=== PATIENT | female | born 1990 | race Caucasian/White ===

== ENCOUNTER 2017-02-28 09:46 | Emergency (ER) | payer MEDICAID ==
[2017-02-28 09:58] VITALS: O2SAT 98; BMI 27.3
--- NOTE | 2017-02-28 10:37 | ED PDOC ---
HPI: Abdomen Time Seen by Provider: 02/28/17 09:47 Chief Complaint (Nursing): Abdominal Pain Chief Complaint (Provider): Abdominal pain in History Per: Patient Additional Complaint(s): 26 yo female, no PMH, presents to ED c/o pelvic pain x5-6 days. Denies discharge or bleeding. LMP: . Pt reports she did not take a test at home but believes she might be preg. Preg test done at bedside (+) No vaginal bleeding. Pt is known RH (-) Past Medical History Reviewed: Nursing Documentation, Vital Signs Vital Signs: Last Vital Signs Temp 99 F 02/28/17 12:43 Pulse 78 02/28/17 12:43 Resp 18 02/28/17 12:43 BP 135/70 02/28/17 12:43 Pulse Ox 98 02/28/17 12:43 - Medical History PMH: Asthma - Surgical History Surgical History: No Surg Hx - Family History Family History: States: Unknown Family Hx - Living Arrangements Living Arrangements: With Family - Social History Current smoker - smoking cessation education provided: No Alcohol: None Drugs: Denies - Home Medications Home Medications: Ambulatory Orders Medication Instructions Recorded No Known Home Med 02/28/17 - Allergies Allergies/Adverse Reactions: Allergies Allergy/AdvReac Type Severity Reaction Status Date / Time No Known Allergies Allergy Verified 02/28/17 10:08 Review of Systems ROS Statement: Except As Marked, All Systems Reviewed And Found Negative Physical Exam - Reviewed Nursing Documentation Reviewed: Yes Vital Signs Reviewed: Yes - Physical Exam Appears: Positive for: Well, Non-toxic, No Acute Distress Head Exam: Positive for: ATRAUMATIC, NORMAL INSPECTION, NORMOCEPHALIC Skin: Positive for: Normal Color, Warm, DRY Eye Exam: Positive for: EOMI, Normal appearance, PERRL ENT: Positive for: Normal ENT Inspection Neck: Positive for: Normal, Painless ROM Cardiovascular/Chest: Positive for: Regular Rate, Rhythm Respiratory: Positive for: CNT, Normal Breath Sounds Gastrointestinal/Abdominal: Positive for: Normal Exam, Bowel Sounds, Soft Back: Positive for: Normal Inspection Extremity: Positive for: Normal ROM Neurologic/Psych: Positive for: Alert, Oriented - Laboratory Results Result Diagrams: 02/28/17 10:45 - ECG O2 Sat by Pulse Oximetry: 98 Medical Decision Making Medical Decision Making: Pt medicated with Acetaminophen PO CBC WNL Beta: > [id number] IMPRESSION: Single live intrauterine gestation of approximately 5 weeks 6 days gestational age. heart rate 135 beats per minute. No perigestational hemorrhage. Normal yolk sac. Disposition - Clinical Impression Clinical Impression: Abdominal pain during - Patient ED Disposition Is Patient to be Admitted: No - Disposition Disposition: Routine/Home Disposition Time: 13:07 Condition: STABLE Additional Instructions: Continue with Tylenol as needed for pain Instructions: Abdominal Pain in (ED) - POA Present On Arrival: None
[2017-02-28 10:53] LABS: BASO % 0.4 % (0.0-2.0); EOS # 0.3 K/uL (0.0-0.7); EOS % 2.8 % (0.0-4.0); HEMOGLOBIN 15.6 g/dL (12.0-16.0); LYMPH # 2.5 K/uL (1.0-4.3); LYMPH % 21.4 % (20.0-40.0); MEAN CELL VOLUME 83.7 fl (81.0-99.0); MEAN CORPUSCULAR HGB CONC 34.6 g/dL (33.0-37.0); MEAN PLATELET VOLUME 7.2 fl (7.2-11.7); MONO # 0.9 K/uL (0.0-0.8); MONO % 7.6 % (0.0-10.0); NEUT # 7.9 K/uL (1.8-7.0); NEUT % 67.8 % (50.0-75.0); NRBC % 0.1 % (0.0-0.0); RBC 5.37 Mil/uL (3.80-5.20); RED CELL DISTRIBUTION WIDTH 14.1 % (11.5-14.5); WHITE BLOOD COUNT 11.6 K/uL (4.8-10.8)
--- NOTE | 2017-02-28 11:51 | US ---
PROCEDURE: OB Pelvic Ultrasound HISTORY: pelvic pain in preg, unknown LMP COMPARISON: None available. FINDINGS: UTERUS: Single Live intrauterine gestation. CRL equivalent to 6 weeks 1 day gestatioin Gestational sac diameter equivalent to 5 weeks 4 days gestation age (Ultrasound estimated): 5 weeks 6 days Date of delivery (Ultrasound estimated) : 10/25/2017 Heart rate: 135 bpm. [place]-gestational hemorrhage: None. 3 mm yolk sac visualized. Uterus measures 11.0 x 4.7 x 7.6 cm. Right anterior fibroid identified measuring 1.1 x 1.3 x 1.5 cm. CERVIX: Trace endocervical fluid. Cervix is closed. Cervix measures 4.3 cm in length. RIGHT OVARY: Not visualize LEFT OVARY: Not visualize FREE FLUID: None. OTHER FINDINGS: None. IMPRESSION: Single live intrauterine gestation of approximately 5 weeks 6 days gestational age. heart rate 135 beats per minute. No perigestational hemorrhage. Normal yolk sac.
[2017-02-28 12:46] VITALS: BP 135/70; PULSE 78; RESP 18; TEMP 99
== END 2017-02-28 12:46 | disposition home or self-care (01) ==
LOC: H.ER 09:46
DX: O26.891 Other specified pregnancy related conditions, first trimester (principal); Z3A.01 Less than 8 weeks gestation of pregnancy; J45.909 Unspecified asthma, uncomplicated

== ENCOUNTER 2017-05-02 17:55 | Observation (INO) | payer MEDICAID ==
[2017-05-02 17:55] VITALS: BMI 27.3
[2017-05-02] MEDS ORDERED: Sodium Chloride 0.9% 1,000 ML IV STA (18:23)
[2017-05-02] MEDS ORDERED: DiphenhydrAMINE 50 mg/ml Inj IVP STA (18:30)
[2017-05-02] MEDS ORDERED: DiphenhydrAMINE 50 mg/ml Inj ONE (18:39)
[2017-05-02 18:43] LABS: BASO # 0.1 K/uL (0.0-0.2); BASO % 0.4 % (0.0-2.0); EOS # 0.2 K/uL (0.0-0.7); EOS % 1.5 % (0.0-4.0); HEMATOCRIT 38.5 % (34.0-47.0); LYMPH # 2.6 K/uL (1.0-4.3); LYMPH % 20.6 % (20.0-40.0); MEAN CELL VOLUME 84.3 fl (81.0-99.0); MEAN CORPUSCULAR HEMOGLOBIN 29.1 pg (27.0-31.0); MEAN CORPUSCULAR HGB CONC 34.5 g/dL (33.0-37.0); MEAN PLATELET VOLUME 7.3 fl (7.2-11.7); MONO # 0.6 K/uL (0.0-0.8); NEUT % 72.5 % (50.0-75.0); NRBC % 0.1 % (0.0-0.0); RED CELL DISTRIBUTION WIDTH 14.3 % (11.5-14.5); WHITE BLOOD COUNT 12.4 K/uL (4.8-10.8)
--- NOTE | 2017-05-02 18:51 | ED PDOC ---
HPI: Headache Time Seen by Provider: 05/02/17 18:01 Chief Complaint (Nursing): Headache Chief Complaint (Provider): Headache History Per: Patient History/Exam Limitations: no limitations Onset/Duration Of Symptoms: Days (x2 weeks), Worse Since (last few days) Current Symptoms Are (Timing): Still Present Associated Symptoms: Blurred Vision Additional Complaint(s): Roxanne Rojas is a 26 year old female, with a past medical history of asthma, who presents to the emergency department complaining of generalized headache onset for 2 weeks. Patient is 15 weeks and states symptoms have worsen in the past few days. She saw her OBGYN for evaluation of headache. She reports taking Tylenol and blurry vision. Patient denies any fever, chills, nausea, or vomit. No further medical complaints. OBGYN Tashi Phillips Past Medical History Reviewed: Historical Data, Nursing Documentation, Vital Signs Vital Signs: Last Vital Signs Temp 98.5 F 05/02/17 17:58 Pulse 87 05/02/17 17:58 Resp 16 05/02/17 17:58 BP 105/60 05/02/17 17:58 Pulse Ox 100 05/02/17 17:58 - Medical History PMH: Asthma - Family History Family History: States: Unknown Family Hx - Social History Current smoker - smoking cessation education provided: No Alcohol: None Drugs: Denies - Home Medications Home Medications: Ambulatory Orders Medication Instructions Recorded Multivit/Folic Acid/I 1 tab PO DAILY 05/02/17 [] - Allergies Allergies/Adverse Reactions: Allergies Allergy/AdvReac Type Severity Reaction Status Date / Time No Known Allergies Allergy Verified 05/02/17 17:58 Review of Systems ROS Statement: Except As Marked, All Systems Reviewed And Found Negative Constitutional: Negative for: Fever, Chills Eyes: Positive for: Vision Change (blurred vision) Gastrointestinal: Negative for: Nausea, Vomiting Neurological: Positive for: Headache (generalized headache) Physical Exam - Reviewed Nursing Documentation Reviewed: Yes Vital Signs Reviewed: Yes - Physical Exam Appears: Positive for: Well, Non-toxic, No Acute Distress Head Exam: Positive for: ATRAUMATIC, NORMAL INSPECTION, NORMOCEPHALIC Skin: Positive for: Normal Color, Warm, Dry Eye Exam: Positive for: Normal appearance ENT: Positive for: Normal ENT Inspection Neck: Positive for: Normal, Painless ROM Cardiovascular/Chest: Positive for: Regular Rate, Rhythm Respiratory: Positive for: Normal Breath Sounds. Negative for: Respiratory Distress Gastrointestinal/Abdominal: Positive for: Normal Exam, Bowel Sounds, Tenderness Back: Positive for: Normal Inspection Extremity: Positive for: Normal ROM Neurologic/Psych: Positive for: Alert, dog show judge II-XII, Oriented, Motor/Sensory Deficits, Mood/Affect, Cerebellar Tests, Gait. Negative for: Aphasia, Facial Droop - Laboratory Results Result Diagrams: 05/02/17 18:38 05/02/17 18:38 - ECG O2 Sat by Pulse Oximetry: 100 (RA) Pulse Ox Interpretation: Normal Medical Decision Making Medical Decision Making: Initial Impression: Generalized headache Initial Plan: --CMP --Urine dipstick --CBC w/ differential --Benadryl 25 mg IVP --Reglan 10 mg IV --NS IV 1,000ml at 1,000 mls/hr --reevaluation -Discussed with Dr. Mckeon and Dr. Salas for admission. MRI in the AM. Scribe Attestation: Documented by Floyd Braun, acting as a scribe for Jennifer ROSALES. Provider Scribe Attestation: All medical record entries made by the Scribe were at my direction and personally dictated by me. I have reviewed the chart and agree that the record accurately reflects my personal performance of the history, physical exam, medical decision making, and the department course for this patient. I have also personally directed, reviewed, and agree with the discharge instructions and disposition. Disposition - Clinical Impression Clinical Impression: Intractable headache - Patient ED Disposition Is Patient to be Admitted: Yes Counseled Patient/Family Regarding: Diagnosis, Need For Followup - Disposition Disposition Time: 21:44 Condition: GOOD Forms: [employer] (Faroese) - Pt Status Changed To: Hospital Disposition Of: Observation - Admit Certification Admit to Inpatient:: M/S - POA Present On Arrival: None
[2017-05-02 18:56] LABS: ALB/GLOB RATIO 1.4 (1.0-2.1); ALKALINE PHOSPHATASE 58 U/L (38-126); ALT/SGPT 30 U/L (9-52); AST/SGOT 27 U/L (14-36); BILIRUBIN,TOTAL 0.5 mg/dl (0.2-1.3); BLOOD UREA NITROGEN 5 mg/dl (7-17); CALCIUM 9.3 mg/dL (8.4-10.2); CARBON DIOXIDE 23 mmol/L (22-30); CHLORIDE 103 mmol/L (98-107); GFR AFRICAN-AMERICAN > 60; GLUCOSE,RANDOM 92 mg/dL (65-105); POTASSIUM 3.7 MMOL/L (3.6-5.0); SODIUM 137 mmol/l (132-148)
--- NOTE | 2017-05-03 08:18 | CP.PCM.CON ---
<Tiffanie Tatum - Last Filed: 05/03/17 12:59> History of Present Illness - History of Present Illness History of Present Illness: 26 yo F IUP 15 weeks seen and examined today at bedside, no acute overnight events, c/o headache since 2weeks ago worse since yesterday in the morning, frontal up to midhead, 10/10, gradually, constant, no radiated, associated nausea, blurred vision and pain R eye, photophobia, mild phonophobia. She took tylenol at home w/o relief. Denies fever, vomiting, recent injury or trauma, no cp,sob, abdominal or pelvic pain. Denies ctx, lof, vb. No previous h/o headache or family history of migraine. PMH: Asthma PSH: 2016 FMH: none Meds: PNV Allergies: NKDA SH: denies tobacco, etoh, drugs. Review of Systems - Review of Systems Review of Systems: As per HPI Past Patient History - Infectious Disease Hx of Infectious Diseases: None - Past Medical History & Family History Past Medical History?: No - Past Social History Smoking Status: Never Smoked Alcohol: None Drugs: Denies - PULMONARY Hx Asthma: Yes - SURGICAL HISTORY Hx Surgeries: Yes Hx Section: Yes (x1) - ANESTHESIA Hx Anesthesia: Yes Hx Anesthesia Reactions: No Hx Malignant Hyperthermia: No Meds Allergies/Adverse Reactions: Allergies Allergy/AdvReac Type Severity Reaction Status Date / Time No Known Allergies Allergy Verified 05/02/17 17:58 - Medications Medications: Current Medications Acetaminophen (Tylenol 325mg Tab) 650 mg PO Q6 PRN PRN Reason: Headache Multivit/Folic Acid/Iron () 1 tab PO DAILY ED Physical Exam - Constitutional Appears: No Acute Distress Additional comments: Uncomfortable due to pain - Head Exam Head Exam: ATRAUMATIC, NORMOCEPHALIC - Eye Exam Eye Exam: EOMI, Normal appearance, PERRL - Neck Exam Neck exam: Positive for: Full Rom - Respiratory Exam Respiratory Exam: Clear to Auscultation Bilateral - Cardiovascular Exam Cardiovascular Exam: REGULAR RHYTHM, +S1, +S2 - GI/Abdominal Exam Additional comments: gravid - Neurological Exam Neurological exam: Alert, CN II-XII Intact, Oriented x3, Reflexes Normal - Psychiatric Exam Psychiatric exam: Normal Mood Results - Vital Signs Recent Vital Signs: Last Vital Signs Temp 98.8 F 05/03/17 07:35 Pulse 85 05/03/17 07:35 Resp 18 05/03/17 07:35 BP 106/69 05/03/17 07:35 Pulse Ox 98 05/03/17 07:35 - Labs Result Diagrams: 05/02/17 18:38 05/02/17 18:38 Assessment & Plan - Assessment and Plan (Free Text) Assessment: Intractable Headache -tylenol 325mg q6 prn -reglan 10 mg po if nausea -pending MRI DVT prophylaxis -[facility] [place] Tiffanie Tatum PGY 1 <Linda Tatum - Last Filed: 05/03/17 13:21> Meds - Medications Medications: Current Medications Acetaminophen (Tylenol 325mg Tab) 650 mg PO Q6 PRN PRN Reason: Headache Last Admin: 05/03/17 09:31 Dose: 650 mg Magnesium Sulfate (Magnesium Sulfate 2 Gm/50 Ml Water) 2 gm in 50 mls @ 50 mls/ hr IVPB ONCE ONE PRN Reason: 2 GM/HR Stop: 05/03/17 13:43 Multivit/Folic Acid/Iron () 1 tab PO DAILY ED Last Admin: 05/03/17 09:31 Dose: 1 tab Results - Vital Signs Recent Vital Signs: Last Vital Signs Temp 98.8 F 05/03/17 07:35 Pulse 85 05/03/17 07:35 Resp 18 05/03/17 07:35 BP 106/69 05/03/17 07:35 Pulse Ox 98 05/03/17 07:35 - Labs Result Diagrams: 05/02/17 18:38 05/02/17 18:38 Labs: Laboratory Results - last 24 hr 05/03/17 10:13 TSH 3rd Generation 1.03 Assessment & Plan - Assessment and Plan (Free Text) Plan: The patient was counseled regarding the causes of headache. Patient reports excruciating headache N located in the frontal area. The patient was counseled regarding the need for MRI. We discussed the risks associated with . We discussed the risks benefits and alternatives to both imaging and doing nothing. After thorough discussion the patient opted for MRI of the head. The patient was given the opportunity ask questions all questions answered and she agreed to plan of care
[2017-05-03] MEDS ORDERED: Prenatal Multivit/Folic Acid/Iron Tab PO SCH (09:00)
--- NOTE | 2017-05-03 12:19 | HP ---
CHIEF COMPLAINT: Headache. HISTORY OF PRESENT ILLNESS: This is a 26-year-old female, 15-weeks , without any significant past medical history who was having significant headache for which the patient went to her director of social work who evaluated the patient and since the patient was not improving with conventional management, the patient was sent to emergency room for admission and further management and workup. REVIEW OF SYSTEMS: Positive for headache and being for 15-weeks. Review of systems is otherwise negative for chest pain, shortness of breath, nausea, vomiting, diarrhea, constipation, any new joint or extremity pain. Review of systems of all other organ system is unremarkable. PAST MEDICAL HISTORY: Significant for asthma for which the patient really is not using medication. PAST SURGICAL HISTORY: Unremarkable. PERSONAL HISTORY: The patient is currently nonsmoker and nondrinker. No substance abuse. MEDICATIONS: The patient is on vitamin prescribed by Dr. Tashi Ibrahim, her shoulder joiner. ALLERGIES: THE PATIENT IS NOT ALLERGIC TO ANY MEDICATIONS. FAMILY HISTORY: Noncontributory. PHYSICAL EXAMINATION: GENERAL: A well-built and well-nourished, athletic 26-year-old female in no acute distress. VITAL SIGNS: Temperature 98.6, pulse 85, respirations 18,blood pressure 106/69 and saturation 98%. HEENT: Pupils are reacting to light. Normocephalic and atraumatic scalp. NECK: No JVD. No thyromegaly. No lymphadenopathy. No nystagmus. HEART: S1 and S2 normal and regular. No significant murmur, gallop, or rub is heard. LUNGS: Shows good bilateral air exchange. No rales or rhonchi. ABDOMEN: Soft and nontender. No organomegaly. No fluids. Bowel sounds are plus.. The patient is 15-weeks . EXTREMITIES: No edema. No calf swelling. No tenderness. No acute ischemia. CENTRAL NERVOUS SYSTEM: The patient is alert, awake, and oriented x3. There is no sign of any acute gross focal motor or sensory neurological deficit. DIAGNOSTIC DATA: Available diagnostic data reviewed. WBC 12.4, hemoglobin 13.3, hematocrit 38.5, and platelets are 254. Sodium 137, potassium 3.7, chloride 102, bicarbonate 23, BUN 5 and creatinine 0.6. SMA-12 is unremarkable. ADMITTING IMPRESSION: Headache, 15-weeks . PLAN: As ordered. Case and plan discussed with the patient. Nicola Salas MD [facility] # [id number]
[2017-05-03 12:25] LABS: THYROID STIMULATING HORMONE 1.03 mIU/ML (0.46-4.68)
[2017-05-03] MEDS ORDERED: Magnesium Sulfate 2 gm/50 ml 2 GM/50 ML BAG IVPB ONE (12:44)
--- NOTE | 2017-05-03 12:44 | CP.PCM.CON ---
History of Present Illness - History of Present Illness History of Present Illness: Ms. Rojas is a 26-year-old woman who is currently 15 weeks and states that she has had a headache for the last two weeks. She does not have any significant medical problems. She states that the headache starts in the occiput and moves anteriorly to involve the frontal region, right above her eyes. It is associated with nausea, photophobia, phonophobia and she has intolerance of smells. The headache feels pressure-like and is constant. It is not pulsating or throbbing. At its worst, it is a 10/10 in severity, but currently is 8/10. There is no lacrimation, or nasal discharge. She denies double vision, but does have occasional blurry vision with the headache. No chest pain, SOB, weakness, sensory changes, abdominal pain or vomiting. Review of Systems - Review of Systems All systems: reviewed and no additional remarkable complaints except Past Patient History - Infectious Disease Hx of Infectious Diseases: None - Past Medical History & Family History Past Medical History?: No - Past Social History Smoking Status: Never Smoked Alcohol: None Drugs: Denies - CARDIAC Hx Cardiac Disorders: No - PULMONARY Hx Asthma: Yes - NEUROLOGICAL Hx Neurological Disorder: No - HEENT Hx HEENT Problems: No - RENAL Hx Chronic Kidney Disease: No - ENDOCRINE/METABOLIC Hx Endocrine Disorders: No - HEMATOLOGICAL/ONCOLOGICAL Hx Blood Disorders: No Hx AIDS: No Hx Human Immunodeficiency Virus (HIV): No - INTEGUMENTARY Hx Dermatological Problems: No - MUSCULOSKELETAL/RHEUMATOLOGICAL Hx Musculoskeletal Disorders: No Hx Falls: No - GASTROINTESTINAL Hx Gastrointestinal Disorders: No - GENITOURINARY/GYNECOLOGICAL Hx Genitourinary Disorders: No - PSYCHIATRIC Hx Psychophysiologic Disorder: No Hx Substance Use: No - SURGICAL HISTORY Hx Surgeries: Yes Hx Section: Yes (x1) - ANESTHESIA Hx Anesthesia: Yes Hx Anesthesia Reactions: No Hx Malignant Hyperthermia: No Meds Allergies/Adverse Reactions: Allergies Allergy/AdvReac Type Severity Reaction Status Date / Time No Known Allergies Allergy Verified 05/02/17 17:58 - Medications Medications: Current Medications Acetaminophen (Tylenol 325mg Tab) 650 mg PO Q6 PRN PRN Reason: Headache Last Admin: 05/03/17 09:31 Dose: 650 mg Multivit/Folic Acid/Iron () 1 tab PO DAILY ED Last Admin: 05/03/17 09:31 Dose: 1 tab Physical Exam - Constitutional Appears: Well - Head Exam Head Exam: ATRAUMATIC, NORMAL INSPECTION, NORMOCEPHALIC - Eye Exam Eye Exam: EOMI, Normal appearance, PERRL - ENT Exam ENT Exam: Mucous Membranes Moist, Normal Exam - Neck Exam Neck exam: Positive for: Normal Inspection - Respiratory Exam Respiratory Exam: Clear to Auscultation Bilateral, NORMAL BREATHING PATTERN - Cardiovascular Exam Cardiovascular Exam: REGULAR RHYTHM, +S1, +S2 - GI/Abdominal Exam GI & Abdominal Exam: Normal Bowel Sounds, Soft. absent: Tenderness - Rectal Exam Rectal Exam: Deferred - Extremities Exam Extremities exam: Positive for: normal inspection - Neurological Exam Neurological exam: Alert, CN II-XII Intact, Normal Gait, Oriented x3, Reflexes Normal - Psychiatric Exam Psychiatric exam: Normal Affect, Normal Mood - Skin Skin Exam: Dry, Intact, Normal Color, Warm Results - Vital Signs Recent Vital Signs: Last Vital Signs Temp 98.8 F 05/03/17 07:35 Pulse 85 05/03/17 07:35 Resp 18 05/03/17 07:35 BP 106/69 05/03/17 07:35 Pulse Ox 98 05/03/17 07:35 - Labs Result Diagrams: 05/02/17 18:38 05/02/17 18:38 Labs: Laboratory Results - last 24 hr 05/03/17 10:13 TSH 3rd Generation 1.03 Assessment & Plan (1) Intractable headache Assessment and Plan: May be related to since she did not have headaches prior to this. However, we are limited in terms of what medications she can be given at this point. She has not benefited much from Tylenol. I recommend dosing magnesium sulfate 2 grams IV once and continuing fluids along with conservative management. If this does not work, we can try Flexeril 5 mg Q8. Thank you. Status: Acute Priority: Medium
[2017-05-03 13:34] VITALS: BP 105/65; PULSE 96; RESP 19; TEMP 98.3; O2SAT 97
--- NOTE | 2017-05-03 15:05 | MRI ---
PROCEDURE: MRI BRAIN WITHOUT CONTRAST HISTORY: Headaceh, 15 weeks gestation COMPARISON: None. TECHNIQUE: Multiplanar, multisequence MR images of the brain were obtained without intravenous contrast enhancement. FINDINGS: HEMORRHAGE: None DWI: No evidence of an acute or early subacute infarction. BRAIN PARENCHYMA: No mass effect or edema. No atrophy or chronic microvascular ischemic changes. VENTRICLES: Unremarkable. No hydrocephalus. CRANIUM: Unremarkable. ORBITS: Grossly unremarkable. PARANASAL SINUSES/MASTOIDS: Clear VASCULAR SYSTEM: Skull base flow voids intact. OTHER FINDINGS: None. IMPRESSION: Unremarkable non contrast enhanced MRI of the brain.
== END 2017-05-03 14:37 | disposition left against medical advice (07) ==
LOC: H.ER 17:55 → H.ERHOLD 21:44 → H.MEDSURG1 22:36
PROVIDERS: ADMIT Internal Medicine; ATTEND Internal Medicine
DX: R51 Headache (principal); Z3A.15 15 weeks gestation of pregnancy; Z33.1 Pregnant state, incidental; J45.909 Unspecified asthma, uncomplicated
CPT/HCPCS: 36415; 70551; 80053; 82607; 84443; 85025; 96360; 96374; 99285; G0378; J1200; J2765; J7040

== ENCOUNTER 2018-09-02 19:26 | Emergency (ER) | payer SELFPAY ==
[2018-09-02 19:30] VITALS: RESP 18; O2SAT 99
[2018-09-02] MEDS ORDERED: Sodium Chloride 0.9% 1,000 ML IV STA (20:05)
[2018-09-02 20:39] LABS: BASO # 0.1 K/uL (0.0-0.2); BASO % 1.1 % (0.0-2.0); EOS # 0.2 K/uL (0.0-0.7); EOS % 1.6 % (0.0-4.0); HEMOGLOBIN 16.6 g/dL (12.0-16.0); LYMPH # 3.3 K/uL (1.0-4.3); LYMPH % 24.3 % (20.0-40.0); MEAN CELL VOLUME 83.6 fl (81.0-99.0); MEAN CORPUSCULAR HEMOGLOBIN 28.7 pg (27.0-31.0); MEAN CORPUSCULAR HGB CONC 34.3 g/dL (33.0-37.0); MEAN PLATELET VOLUME 7.3 fl (7.2-11.7); MONO # 0.9 K/uL (0.0-0.8); MONO % 6.4 % (0.0-10.0); NEUT # 9.2 K/uL (1.8-7.0); NEUT % 66.6 % (50.0-75.0); RBC 5.79 Mil/uL (3.80-5.20); RED CELL DISTRIBUTION WIDTH 15.6 % (11.5-14.5); WHITE BLOOD COUNT 13.7 K/uL (4.8-10.8)
--- NOTE | 2018-09-02 20:45 | ED PDOC ---
HPI: Abdomen Time Seen by Provider: 09/02/18 19:47 Chief Complaint (Nursing): Abdominal Pain Chief Complaint (Provider): Abdominal Pain History Per: Patient History/Exam Limitations: no limitations Onset/Duration Of Symptoms: Hrs (x 2) Current Symptoms Are (Timing): Still Present Location Of Pain/Discomfort: Periumbilical Quality Of Discomfort: Sharp, "Pain" Associated Symptoms: Nausea, Vomiting Additional Complaint(s): 27 year old female presents to the ED via [facility] for evaluation of periumbilical pain onset 2 hours ago, associated with nausea and two episodes of nbnb vomiting. Pain is sharp and intermittent. When present it is ranked as 10/10. She took two Advil at 7pm without relief. Denies fever, diarrhea, urinary symptoms and recent travel. PMD: Dr. Ibrahim Last Menstral Period: 08/04/2018 Past Medical History Reviewed: Historical Data, Nursing Documentation, Vital Signs Vital Signs: Last Vital Signs Temp 98.6 F 09/02/18 19:28 Pulse 78 09/02/18 19:28 Resp 18 09/02/18 19:28 BP 129/72 09/02/18 19:28 Pulse Ox 99 09/02/18 19:28 - Medical History PMH: No Chronic Diseases - Surgical History Surgical History: (x2) - Family History Family History: States: Unknown Family Hx - Home Medications Home Medications: Ambulatory Orders Medication Instructions Recorded Multivit/Folic Acid/I 1 tab PO DAILY 05/02/17 [] Famotidine [Pepcid] 40 mg PO DAILY #7 tablet 09/03/18 Ondansetron ODT [Zofran ODT] 4 mg PO Q6 PRN #12 odt 09/03/18 RX: Naproxen 500 mg PO BID PRN #20 tab 09/03/18 - Allergies Allergies/Adverse Reactions: Allergies Allergy/AdvReac Type Severity Reaction Status Date / Time No Known Allergies Allergy Verified 09/03/18 15:41 Review of Systems ROS Statement: Except As Marked, All Systems Reviewed And Found Negative Gastrointestinal: Positive for: Nausea, Vomiting, Abdominal Pain. Negative for: Diarrhea Genitourinary Female: Negative for: Dysuria, Frequency, Incontinence, Hematuria Physical Exam - Reviewed Nursing Documentation Reviewed: Yes Vital Signs Reviewed: Yes - Physical Exam Comments: GENERAL APPEARANCE: Patient is awake, alert, oriented x 3, in no distress. SKIN: Warm, dry; (-) cyanosis. EYES: (-) conjunctival pallor, (-) scleral icterus. ENMT: Mucous membranes moist. Airway patent, (-) stridor. NECK: Supple, FROM (-) tenderness, (-) stiffness, (-) lymphadenopathy. CHEST AND RESPIRATORY: (-) rales, (-) rhonchi, (-) wheezes; breath sounds equal bilaterally. Respirations even and nonlabored. HEART AND CARDIOVASCULAR: (-) irregularity ABDOMEN AND GI: Soft (+) slight distention. Bowel sounds active x 4; (+) tenderness to periumbilical region (-) guarding, (-) rebound, (-) palpable masses, (-) CVA tenderness. EXTREMITIES: (-) deformity NEURO AND PSYCH: Mental status as above; (-) focal findings. Gait: steady. Speech: clear. (-) facial asymmetry (-) aphasia - Laboratory Results Result Diagrams: 09/02/18 20:36 09/02/18 20:36 - ECG O2 Sat by Pulse Oximetry: 99 (RA) Pulse Ox Interpretation: Normal Medical Decision Making Medical Decision Makin:05 Impression: abdominal pain, nausea and vomiting Initial Plan: --CMP --CBC --lactic acid --Lipase --Pepcid 40 mg IVP --Zofran 4 mg IV --Toradol 30 mg IV --NS IV --Urine dip --UA 2110 Labs reviewed. WBC 13.7. Slight elevation of LFTs on CMP. U/A (-) evidence of UTI On re-evaluation, patient with persistent pain. CT abd/pel with IV contrast ordered. [address] 22:40 CT Abd/Pelvis COMMENTS: The liver is of uniform attenuation without mass or defect. There is no intra or extrahepatic biliary ductal dilatation. The spleen is normal. The gallblad bhanu is contracted. The pancreas is of normal contour and attenuation characteristics. There is no evidence of adrenal mass. Both kidneys demonstrate prompt and equal nephrograms. The kidneys are normal in size, shape and configuration. There is no evidence of renal or ureteral mass. No renal or ureteral calculi are identified. There is no hydroureter or hydronephrosis. No evidence for appendicitis. There are fluid filled thick wall loops of small bowel noted including ileum consistent with enteritis. No evidence for small or large bowel obstruction. There is a broad based fat containing umbilical hernia present. There is trace evens-hepatic ascites present. Small amount of fluid present in the pelvic cul-de-sac. There is no evidence of abdominal lymphadenopathy. The uterus is bulky and large. Note is made of tubular peripherally enhancing lesion in the region of right adnexa measuring 4.7 x 2.0 cm which may represent hydrosalpinx versus tuboovarian abscess. The left ovary is grossly normal. There is no evidence of intrinsic or extrinsic bladder mass. There is no pelvic lymphadenopathy. Images of the lung bases show no evidence of pleural or parenchymal mass. There are no pleural effusions. Scarring is seen in the left lung base. The bony structures are free of lytic or blastic lesions. IMPRESSION: 1. Normal appendix is noted. 2. Enteritis. 3. Broad based fat containing umbilical hernia. 4. Trace evens-hepatic ascites present. 5. Small amount of fluid present in the pelvic cul-de-sac. 6. The uterus is bulky and large. 7. Note is made of tubular peripherally enhancing lesion in the region of right adnexa measuring 4.7 x 2.0 cm which may represent hydrosalpinx versus tuboovarian abscess. Follow-up with pelvic ultrasound is recommended. In light of CT findings, TV U/S ordered. On re-evaluation, patient sleeping comfortably. When awoken, patient reports improvement of symptoms. 0035 Patient in U/S. 0110 Transvaginal US Indication: Sharp pain at the lytic area today. Technique: Transvaginal real-time ultrasound images with Doppler evaluation. Findings: Uterus measures 10.6x5.6x1.9 cm. Unremarkable cervix measuring 3.7 cm in its length. Diffusely thickened endometrium measuring 2.0 cm. Uterine body intramural fibroid is noted measuring 1.6 cm. Free fluid is noted in the pelvic cul-de-sac. Unremarkable right ovary. Unremarkable left ovary. Impression: Diffusely thickened endometrium. Free fluid in the pelvic cul-de-sac. Intramural anterior myometrial wall fibroid. On re-evaluation, patient reports resolution of symptoms. On exam, patient remains AAOx3, in no acute distress. Lungs clear to auscultation, cardiac RRR, abdomen soft, non-tender, repeat neuro exam shows no focal findings. Vitals stable. Lab/Diagnostic results d/w the patient in great detail. Diagnosis of abdominal pain, umbilical hernia, nausea and vomiting d/w the patient. Based on history, exam and diagnostic results, plan will be for outpatient follow up with PMD/GI. Patient instructed to follow-up with pmd / referral provided / the clinic in 1- 2 days without fail. Advised to take medication as prescribed. Return to the emergency room at any time for any new or worsening symptoms. Patient states she fully agrees with and understands discharge instructions. States that she agrees with the plan and disposition. Verbalized and repeated discharge instructions and plan. I have given the patient opportunity to ask any additional questions. Scribe Attestation: Documented by Constanza Castellanos acting as a scribe for Rosemarie An PA-C Provider Scribe Attestation: All medical record entries made by the Scribe were at my direction and personally dictated by me. I have reviewed the chart and agree that the record accurately reflects my personal performance of the history, physical exam, medical decision making, and the department course for this patient. I have also personally directed, reviewed, and agree with the discharge instructions and disposition. Disposition - Clinical Impression Clinical Impression: Abdominal pain, Umbilical hernia, Nausea and vomiting, Enteritis - Patient ED Disposition Is Patient to be Admitted: No Counseled Patient/Family Regarding: Studies Performed, Diagnosis, Need For Followup, Rx Given - Disposition Referrals: Tashi Tucker MD [Family Provider] - Wilfredo Alexandra MD, PhD [Staff Provider] - Disposition: Routine/Home Disposition Time: 01:20 Condition: STABLE Additional Instructions: The emergency medical care you received today was directed at your acute symptoms. If you were prescribed any medication, please fill it and take as directed. It may take several days for your symptoms to resolve. Return to the Emergency Department if your symptoms worsen, do not improve, or if you have any other problems. Please contact your doctor in 2 days for re-evaluation and follow up / or call one of the physicians/clinics you have been referred to that are listed on the Patient Visit Information form that is included in your discharge packet. Bring any paperwork you were given at discharge with you along with any medications you are taking to your follow up visit. Our treatment cannot replace ongoing medical care by a primary care provider (PCP) outside of the emergency department. Prescriptions: Famotidine [Pepcid] 40 mg PO DAILY #7 tablet RX: Naproxen 500 mg PO BID PRN #20 tab PRN Reason: Pain, Moderate (4-7) Ondansetron ODT [Zofran ODT] 4 mg PO Q6 PRN #12 odt PRN Reason: Nausea/Vomiting Instructions: Acute Abdomen (Belly Pain), Nausea and Vomiting, Adult (DC) Forms: ACTV8 (Sami) Print Language: SYRIAC - POA Present On Arrival: None Results - Lab Results Lab Results: 09/02/18 09/02/18 09/02/18 20:36 20:36 20:36 WBC RBC Hgb Hct MCV MCH MCHC RDW Plt Count MPV Neut % (Auto) Lymph % (Auto) [place] % (Auto) Eos % (Auto) Baso % (Auto) Neut # (Auto) Lymph # (Auto) [place] # (Auto) Eos # (Auto) Baso # (Auto) Sodium 137 Potassium 4.1 Chloride 101 Carbon Dioxide 28 Anion Gap 12 BUN 13 Creatinine 0.7 Est GFR ( Amer) > 60 Est GFR (Non-Af Amer) > 60 Random Glucose 92 Lactic Acid 1.2 Calcium 9.6 Total Bilirubin 0.4 AST 55 H ALT 73 H Alkaline Phosphatase 90 Total Protein 7.7 Albumin 4.3 Globulin 3.4 Albumin/Globulin Ratio 1.3 Lipase 97 Urine Color Yellow Urine Clarity Slighty-cloudy Urine pH 6.0 Ur Specific Drummond 1.015 Urine Protein Negative Urine Glucose (UA) Neg Urine Ketones Negative Urine Blood Small Urine Nitrate Negative Urine Bilirubin Negative Urine Urobilinogen 0.2-1.0 Ur Leukocyte Esterase Neg Urine RBC (Auto) 3 Urine Microscopic WBC 3 Ur Squamous Epith Cells 2 Urine Bacteria Few H 09/02/18 20:36 WBC 13.7 H RBC 5.79 H Hgb 16.6 H Hct 48.4 H MCV 83.6 MCH 28.7 MCHC 34.3 RDW 15.6 H Plt Count 278 MPV 7.3 Neut % (Auto) 66.6 Lymph % (Auto) 24.3 Cabell % (Auto) 6.4 Eos % (Auto) 1.6 Baso % (Auto) 1.1 Neut # (Auto) 9.2 H Lymph # (Auto) 3.3 [place]ell # (Auto) 0.9 H Eos # (Auto) 0.2 Baso # (Auto) 0.1 Sodium Potassium Chloride Carbon Dioxide Anion Gap BUN Creatinine Est GFR ( Amer) Est GFR (Non-Af Amer) Random Glucose Lactic Acid Calcium Total Bilirubin AST ALT Alkaline Phosphatase Total Protein Albumin Globulin Albumin/Globulin Ratio Lipase Urine Color Urine Clarity Urine pH Ur Specific Drummond Urine Protein Urine Glucose (UA) Urine Ketones Urine Blood Urine Nitrate Urine Bilirubin Urine Urobilinogen Ur Leukocyte Esterase Urine RBC (Auto) Urine Microscopic WBC Ur Squamous Epith Cells Urine Bacteria
[2018-09-02 20:46] LABS: SQUAMOUS EPITHIAL 2 /hpf (0-5); URINE BACTERIA FEW (<OCC); URINE BILIRUBIN NEGATIVE (NEGATIVE); URINE BLOOD SMALL (NEGATIVE); URINE CLARITY SLIGHTY-CLOUDY (Clear); URINE COLOR YELLOW (YELLOW); URINE GLUCOSE (UA) NEG (NEGATIVE); URINE LEUKOCYTE ESTERASE NEG Leu/uL (Negative); URINE PROTEIN NEGATIVE (NEGATIVE); URINE UROBILINOGEN 0.2-1.0 mg/dL (0.2-1.0)
[2018-09-02 21:01] LABS: NRBC % 0.4 % (0.0-0.0)
[2018-09-02 21:07] LABS: ALB/GLOB RATIO 1.3 (1.0-2.1); ALBUMIN 4.3 g/dL (3.5-5.0); ALT/SGPT 73 U/L (9-52); AST/SGOT 55 U/L (14-36); BLOOD UREA NITROGEN 13 mg/dl (7-17); CALCIUM 9.6 mg/dL (8.4-10.2); GFR NON-AFRICAN AMERICAN > 60; LIPASE 97 U/L (23-300)
[2018-09-02] MEDS ORDERED: Iohexol 300 100 ML IJ ONE (21:29)
[2018-09-02] MEDS ORDERED: Sodium Chloride 0.9% 50 ML IV ONE (21:30)
[2018-09-03 01:35] VITALS: BP 122/64; PULSE 82; TEMP 98.1
--- NOTE | 2018-09-03 11:46 | CT ---
Date of service: 09/02/2018 PROCEDURE: CT Abdomen and Pelvis with contrast HISTORY: periumbilical pain, poss hernia COMPARISON: None available. TECHNIQUE: CT scan of the abdomen and pelvis was performed after administration of intravenous contrast. Oral contrast was not administered. Coronal and sagittal reformatted images were obtained. Contrast dose: Radiation dose: Total exam DLP = 744.74 mGy-cm. This CT exam was performed using one or more of the following dose reduction techniques: Automated exposure control, adjustment of the mA and/or kV according to patient size, and/or use of iterative reconstruction technique. FINDINGS: LOWER THORAX: The visualized lungs are clear. LIVER: Normal in size with homogeneous enhancement. No gross lesion or ductal dilatation. GALLBLADDER AND BILE DUCTS: The gallbladder is contracted. PANCREAS: Normal in size with homogeneous enhancement. No gross lesion or ductal dilatation. SPLEEN: Normal in size and appearance. ADRENALS: No discrete nodule. KIDNEYS AND URETERS: Normal in size with homogeneous enhancement. No hydronephrosis. No solid mass. VASCULATURE: No aortic aneurysm. There are no aortic atherosclerotic calcifications or mural plaque present. BOWEL: Evaluation of the bowel is limited in the absence of oral contrast. The small bowel loops are normal in caliber. The colon is grossly normal in appearance. No bowel wall thickening or obstruction. APPENDIX: The appendix is normal in caliber with intraluminal air. PERITONEUM: Small amount of perihepatic fluid and free fluid in the pelvis. No free air. LYMPH NODES: No enlarged lymph nodes. BLADDER: Well distended and normal in appearance. REPRODUCTIVE: The uterus is normal in size. The right ovary is located higher up in the right lower quadrant. There is an apparent 4.3 x 2.1 cm cyst with irregular enhancing margins. There is mild asymmetric enlargement of the right ovary. BONES: No acute fracture. Within normal limits for the patient's age. OTHER FINDINGS: There is a fat containing umbilical hernia. IMPRESSION: 1. No CT evidence for acute appendicitis. 2. Asymmetric enlargement of the right ovary which is located higher up in the right lower quadrant. 4.3 x 2.1 cm presumable cyst with irregular enhancing margin which may be related to leaking cyst or partial rupture which could explain small amount of perihepatic fluid and free fluid in the pelvis. A preliminary report was provided by [facility].
--- NOTE | 2018-09-03 11:48 | US ---
Date of service: 09/02/2018 HISTORY: r/o tuboovarian abscess - right side COMPARISON: None available. TECHNIQUE: Transvaginal pelvic ultrasound was performed with longitudinal and transverse images submitted for interpretation. FINDINGS: UTERUS: Measures 10.6 x 5.6 x 7.9 cm. Uterus is enlarged with a small subserosal anterior uterine fibroid measuring 1.6 x 1.5 x 1.6 cm at the lower uterine segment portion of the uterus. No additional myometrial pathology appreciable. ENDOMETRIUM: Measures 17.4 mm in diameter. Moderately heterogeneous but nonfocal. CERVIX: No cervical abnormality identified. RIGHT OVARY: Measures 4.1 x 2.4 x 2.8 cm. The right ovary is heterogeneous in echotexture with a few small follicles identified. Limited anechoic fluid is seen adjacent to it. Intra-ovarian arterial blood flows been captured on spectral Doppler analysis. No torsion pattern evident. LEFT OVARY: Measures 4.2 x 1.6 x 3.3 cm. No solid mass. Normal flow. FREE FLUID: Trace fluid is seen the cul-de-sac OTHER FINDINGS: None. IMPRESSION: 1. No evidence to suggest tubo-ovarian abscess transvaginal sonography. 2. Limited fluid is seen adjacent to the right ovary which is otherwise unremarkable a could reflect sequelae from prior right ovarian cyst rupture. Trace fluid is also seen the cul-de-sac appearing uncomplicated. 3. Unremarkable left ovary. 4. Mild uterine enlargement with small, anterior subserosal lower uterine segmentfibroid. 5. Prominent endometrium at 17.4 mm. Preliminary report provided by Gerard, 09/03/2018 1:06 a.m..
== END 2018-09-03 01:40 | disposition home or self-care (01) ==
LOC: H.ER 19:26 → MERGE 19:26 → H.ER 09-03 01:40
DX: R10.9 Unspecified abdominal pain (principal); R11.2 Nausea with vomiting, unspecified; K52.9 Noninfective gastroenteritis and colitis, unspecified; K42.9 Umbilical hernia without obstruction or gangrene; D25.1 Intramural leiomyoma of uterus
CPT/HCPCS: 74177; 76830; 80053; 81003; 81025; 83605; 83690; 85025; 96361; 96374; 96375; 99283; J1885; J2405; J7030; Q9967